=== PATIENT | male | born 2005 | race Caucasian/White ===

== ENCOUNTER 2024-01-11 01:38 | Emergency (ER) | payer SELFPAY ==
[2024-01-11 02:50] VITALS: BP 125/72; PULSE 62
== END 2024-01-11 02:45 | disposition home or self-care (01) ==
LOC: MW.ED 01:38
DX: R07.89 Other chest pain (principal); Z75.8 Other problems related to medical facilities and other health care
CPT/HCPCS: 71045; 71045-26; 93005; 93010; 99285